=== PATIENT | female | born 1940 | race Caucasian/White ===

== ENCOUNTER 2022-01-18 23:44 | Inpatient (IN) ==
[2022-01-19 00:26] LABS: Activated Partial Thrombo Time 56.6 seconds (26.0-38.0); INR 1.39 (0.86-1.15)
[2022-01-19 00:28] LABS: ABS Eosinophils 0.1 10^3/ul (0-0.6); ABS Lymphocytes 0.9 10^3/ul (1.0-4.8); ABS Monocytes 0.7 10^3/ul (0-0.8); ABS Neutrophils 8.6 10^3/ul (1.5-7.7); Hematocrit 44 % (35-47); Hemoglobin 13.7 g/dL (12.0-16.0); Mean Corpuscular HGB Conc 31 g/dL (31-36); Mean Corpuscular Hemoglobin 27 pg (27-31); Mean Corpuscular Volume 86 fL (80-97); Mean Platelet Volume 7.9 fL (7.4-10.4); Nucleated Red Blood Cells % 0.1; Platelet Count 221 10^3/uL (150-450); Red Blood Count 5.14 10^6 /uL (3.70-4.87); Red Cell Distribution Width 18 % (10-15); White Blood Count 10.4 10^3/uL (3.5-10.8)
[2022-01-19 00:44] LABS: High Sens Troponin Baseline 28 pg/mL (<15)
[2022-01-19 00:52] LABS: Albumin 3.3 g/dL (3.2-5.2); CO2 Carbon Dioxide 25 mmol/L (22-32); Calcium 8.6 mg/dL (8.6-10.3); Chloride 103 mmol/L (101-111); Sodium 136 mmol/L (135-145)
[2022-01-19 00:54] LABS: Anion Gap 8 mmol/L (2-11)
[2022-01-19 00:57] LABS: ALT 33 U/L (7-52); Alkaline Phosphatase 237 U/L (35-149); Blood Urea Nitrogen 29 mg/dL (6-24); Creatine Kinase 45 U/L (10-223); Globulin 3.4 g/dL (2-4); Glucose 116 mg/dL (70-100); Total Protein 6.7 g/dL (6.4-8.9); eGFR CKD-EPI 88.9 (>60)
[2022-01-19] MEDS ORDERED: Atropine 0.1 MG/ML 10 ml SYR (1 mg) ONE (01:16)
[2022-01-19 01:36] LABS: High Sensitivity Troponin 1 Hr 46 pg/mL (<15)
[2022-01-19 02:08] LABS: Potassium Redraw 5.2 mmol/L (3.5-5.0)
[2022-01-19] MEDS ORDERED: Furosemide 20 mg/2 ml IV VIAL IV ONE (02:39)
[2022-01-19] MEDS ORDERED: Furosemide 40 mg/4 ml IV VIAL IV ONE (08:16)
[2022-01-19] MEDS ORDERED: Zosyn 3.375 GM IV - ED ONCE IV ONE (08:30)
[2022-01-19] MEDS ORDERED: Zosyn per Pharmacy NOTE FOLLOW UP SCH (09:00)
[2022-01-19 10:37] LABS: Albumin 3.1 g/dL (3.2-5.2); Calcium 8.4 mg/dL (8.6-10.3); Total Bilirubin 0.5 mg/dL (0.2-1.0)
[2022-01-19 10:43] LABS: Globulin 3.2 g/dL (2-4); Total Protein 6.3 g/dL (6.4-8.9); eGFR CKD-EPI 90.2 (>60)
[2022-01-19 10:52] LABS: Urine Appearance Cloudy; Urine Bilirubin Negative (Negative); Urine Blood 2+ (Negative); Urine Color Yellow; Urine Glucose Negative (Negative); Urine Ketones Negative (Negative); Urine Nitrite Negative (Negative); Urine Protein Negative (Negative); Urine Specific Gravity 1.008 (1.002-1.030); Urine Urobilinogen Negative (Negative)
[2022-01-19 11:12] LABS: Urine Bacteria 1+ (Absent); Urine Red Blood Cell 2+(6-10/hpf) (Absent); Urine White Blood Cell 2+(11-20/hpf) (Absent)
[2022-01-19 11:18] LABS: PO2 Arterial 153 mmHg (80-100)
[2022-01-19 11:24] LABS: TSH Ultra Thyroid Stim Horm 1.16 mcIU/mL (0.34-5.60)
[2022-01-19 11:33] LABS: PCO2 Arterial 89 mmHg (35-45)
[2022-01-19 11:35] LABS: Potassium 4.8 mmol/L (3.5-5.0)
[2022-01-19] MEDS ORDERED: Atropine 0.1 MG/ML 10 ml SYR (1 mg) IV PUSH PRN ×2 (12:28→19:45)
[2022-01-19] MEDS: ZOSYN 3.375 GM Q8H per EXTENDED INFUSION IV SCH ×2 (13:32→22:42)
[2022-01-19 14:19] LABS: Calcium 8.6 mg/dL (8.6-10.3); Magnesium 2.1 mg/dL (1.9-2.7); Phosphorus 6.2 mg/dL (2.5-5.0); eGFR CKD-EPI 87.9 (>60)
[2022-01-19 14:42] LABS: PO2 Arterial 218 mmHg (80-100)
[2022-01-19 14:45] LABS: PCO2 Arterial 73 mmHg (35-45)
[2022-01-20] MEDS: ZOSYN 3.375 GM Q8H per EXTENDED INFUSION IV SCH (05:38)
[2022-01-20 06:00] LABS: ABS Lymphocytes 0.8 10^3/ul (1.0-4.8); ABS Monocytes 0.4 10^3/ul (0-0.8); ABS Neutrophils 5.8 10^3/ul (1.5-7.7); Eosinophil % 0.2 %; Hematocrit 39 % (35-47); Hemoglobin 12.2 g/dL (12.0-16.0); Lymphocyte % 11.6 %; Mean Corpuscular HGB Conc 32 g/dL (31-36); Mean Corpuscular Hemoglobin 27 pg (27-31); Mean Corpuscular Volume 85 fL (80-97); Mean Platelet Volume 8.4 fL (7.4-10.4); Platelet Count 183 10^3/uL (150-450); Red Blood Count 4.57 10^6 /uL (3.70-4.87); Red Cell Distribution Width 18 % (10-15)
[2022-01-20 06:24] LABS: Calcium 8.7 mg/dL (8.6-10.3); Magnesium 1.9 mg/dL (1.9-2.7); Potassium 4.4 mmol/L (3.5-5.0); eGFR CKD-EPI 89.2 (>60)
[2022-01-20] MEDS: cefTRIAXone 1 gm/50 mL D5W 1 GM/50 ML BAG IV SCH (12:37)
[2022-01-20] MEDS ORDERED: Furosemide 40 mg/4 ml IV VIAL IV ONE (16:41)
[2022-01-20] MEDS: levETIRAcetam IV 250 MG in NS 0.9% 100 ml BAG 100 ML IVPB SCH (18:12)
[2022-01-20] MEDS: Carbidopa/Levodop 25/100 MG TAB PO SCH ×2 (18:12→20:43)
[2022-01-21] MEDS: levETIRAcetam IV 250 MG in NS 0.9% 100 ml BAG 100 ML IVPB SCH (05:36)
[2022-01-21 06:48] LABS: ABS Basophils 0.1 10^3/ul (0-0.2); ABS Monocytes 0.8 10^3/ul (0-0.8); ABS Neutrophils 5.5 10^3/ul (1.5-7.7); Eosinophil % 0.4 %; Hematocrit 41 % (35-47); Hemoglobin 12.7 g/dL (12.0-16.0); Lymphocyte % 13.9 %; Mean Corpuscular HGB Conc 31 g/dL (31-36); Mean Corpuscular Hemoglobin 27 pg (27-31); Mean Corpuscular Volume 86 fL (80-97); Mean Platelet Volume 8.5 fL (7.4-10.4); Nucleated Red Blood Cells % 0.2; Platelet Count 175 10^3/uL (150-450); Red Blood Count 4.77 10^6 /uL (3.70-4.87); Red Cell Distribution Width 18 % (10-15); White Blood Count 7.4 10^3/uL (3.5-10.8)
[2022-01-21 07:06] LABS: Albumin 3.1 g/dL (3.2-5.2); Calcium 8.6 mg/dL (8.6-10.3); Globulin 3.4 g/dL (2-4); Magnesium 1.9 mg/dL (1.9-2.7); Potassium 4.2 mmol/L (3.5-5.0); Total Protein 6.5 g/dL (6.4-8.9); eGFR CKD-EPI 95.3 (>60)
[2022-01-21 07:07] LABS: Albumin/Globulin Ratio 0.9 (1-3); Total Bilirubin 0.7 mg/dL (0.2-1.0)
[2022-01-21] MEDS: Carbidopa/Levodop 25/100 MG TAB PO SCH ×4 (09:02→20:25)
[2022-01-21] MEDS: cefTRIAXone 1 gm/50 mL D5W 1 GM/50 ML BAG IV SCH (11:52)
[2022-01-21] MEDS ORDERED: Furosemide 40 mg/4 ml IV VIAL IV SLOW PU ONE (13:47)
[2022-01-21] MEDS ORDERED: Metoprolol Tartrate 5 mg VIAL 5 ml VIAL (1 mg/ml) IV PRN (15:41)
[2022-01-21 16:47] LABS: Blood Urea Nitrogen 15 mg/dL (6-24); Calcium 8.6 mg/dL (8.6-10.3); Chloride 93 mmol/L (101-111); Glucose 122 mg/dL (70-100); Potassium 3.9 mmol/L (3.5-5.0); Sodium 141 mmol/L (135-145); eGFR CKD-EPI 96.3 (>60)
[2022-01-21 17:06] LABS: CO2 Carbon Dioxide 47 mmol/L (22-32)
[2022-01-22 07:55] LABS: ABS Basophils 0.1 10^3/ul (0-0.2); ABS Lymphocytes 0.9 10^3/ul (1.0-4.8); ABS Monocytes 0.7 10^3/ul (0-0.8); ABS Neutrophils 4.9 10^3/ul (1.5-7.7); Eosinophil % 0.3 %; Hematocrit 42 % (35-47); Hemoglobin 12.9 g/dL (12.0-16.0); Lymphocyte % 13.7 %; Mean Corpuscular HGB Conc 31 g/dL (31-36); Mean Corpuscular Hemoglobin 26 pg (27-31); Mean Corpuscular Volume 85 fL (80-97); Mean Platelet Volume 8.1 fL (7.4-10.4); Nucleated Red Blood Cells % 0.1; Platelet Count 172 10^3/uL (150-450); Red Blood Count 4.87 10^6 /uL (3.70-4.87); Red Cell Distribution Width 18 % (10-15); White Blood Count 6.6 10^3/uL (3.5-10.8)
[2022-01-22] MEDS: Carbidopa/Levodop 25/100 MG TAB PO SCH ×4 (08:01→20:49)
[2022-01-22 08:39] LABS: Calcium 8.9 mg/dL (8.6-10.3); Magnesium 1.9 mg/dL (1.9-2.7); Potassium 4.1 mmol/L (3.5-5.0); eGFR CKD-EPI 94.5 (>60)
[2022-01-22] MEDS ORDERED: Furosemide 20 mg/2 ml IV VIAL IV SLOW PU ONE (09:40)
[2022-01-22] MEDS: cefTRIAXone 1 gm/50 mL D5W 1 GM/50 ML BAG IV SCH (12:51)
[2022-01-22 14:50] LABS: PO2 Arterial 156 mmHg (80-100)
[2022-01-22 14:54] LABS: PCO2 Arterial 92 mmHg (35-45)
[2022-01-23 04:45] LABS: ABS Eosinophils 0.1 10^3/ul (0-0.6); ABS Monocytes 0.6 10^3/ul (0-0.8); ABS Neutrophils 2.9 10^3/ul (1.5-7.7); Eosinophil % 2.5 %; Hematocrit 40 % (35-47); Hemoglobin 12.5 g/dL (12.0-16.0); Lymphocyte % 21.2 %; Mean Corpuscular HGB Conc 31 g/dL (31-36); Mean Corpuscular Hemoglobin 27 pg (27-31); Mean Corpuscular Volume 85 fL (80-97); Mean Platelet Volume 8.3 fL (7.4-10.4); Nucleated Red Blood Cells % 0.1; Platelet Count 148 10^3/uL (150-450); Red Blood Count 4.68 10^6 /uL (3.70-4.87); Red Cell Distribution Width 18 % (10-15); White Blood Count 4.6 10^3/uL (3.5-10.8)
[2022-01-23 04:59] LABS: Blood Urea Nitrogen 19 mg/dL (6-24); Calcium 8.6 mg/dL (8.6-10.3); Chloride 91 mmol/L (101-111); Glucose 83 mg/dL (70-100); Potassium 4.4 mmol/L (3.5-5.0); Sodium 137 mmol/L (135-145); eGFR CKD-EPI 101.9 (>60)
[2022-01-23 05:24] LABS: CO2 Carbon Dioxide 46 mmol/L (22-32)
[2022-01-23] MEDS: Carbidopa/Levodop 25/100 MG TAB PO SCH ×4 (07:54→20:14)
[2022-01-23] MEDS ORDERED: Furosemide 20 mg/2 ml IV VIAL IV ONE (09:32)
[2022-01-23] MEDS: cefTRIAXone 1 gm/50 mL D5W 1 GM/50 ML BAG IV SCH (11:39)
[2022-01-23] MEDS ORDERED: Furosemide 20 mg/2 ml IV VIAL IV SLOW PU ONE (18:08)
[2022-01-24] MEDS: Carbidopa/Levodop 25/100 MG TAB PO SCH ×4 (08:14→21:18)
[2022-01-24] MEDS ORDERED: Enoxaparin 40 MG/0.4 ML SYR SUBCUT SCH (11:00)
[2022-01-24] MEDS: cefTRIAXone 1 gm/50 mL D5W 1 GM/50 ML BAG IV SCH (13:39)
[2022-01-25 04:56] LABS: ABS Basophils 0.1 10^3/ul (0-0.2); ABS Eosinophils 0.1 10^3/ul (0-0.6); ABS Lymphocytes 0.5 10^3/ul (1.0-4.8); ABS Monocytes 0.5 10^3/ul (0-0.8); ABS Neutrophils 4.9 10^3/ul (1.5-7.7); Eosinophil % 1.5 %; Hematocrit 42 % (35-47); Hemoglobin 12.8 g/dL (12.0-16.0); Lymphocyte % 7.9 %; Mean Corpuscular HGB Conc 30 g/dL (31-36); Mean Corpuscular Hemoglobin 26 pg (27-31); Mean Corpuscular Volume 86 fL (80-97); Platelet Count 149 10^3/uL (150-450); Red Blood Count 4.88 10^6 /uL (3.70-4.87); Red Cell Distribution Width 18 % (10-15)
[2022-01-25 05:11] LABS: Calcium 8.8 mg/dL (8.6-10.3); Magnesium 1.9 mg/dL (1.9-2.7); Potassium 4.2 mmol/L (3.5-5.0); eGFR CKD-EPI 99.4 (>60)
[2022-01-25] MEDS: Carbidopa/Levodop 25/100 MG TAB PO SCH ×5 (09:54→21:11)
[2022-01-25] MEDS ORDERED: Polyethylene Glycol 3350 17 GM PACKET PO PRN (13:51)
[2022-01-25] MEDS ORDERED: Ondansetron ODT 4 mg TAB 4 MG TAB SL PRN (13:51)
[2022-01-25] MEDS: Morphine ORAL CONCENTRATE 5 MG/0.25 ML ORAL.SYRIN SL PRN (16:38)
[2022-01-25] MEDS: Scopolamine 1 mg/72hr PATCH TRANSDERM SCH (18:46)
[2022-01-26] MEDS: Carbidopa/Levodop 25/100 MG TAB PO SCH ×4 (10:21→22:33)
[2022-01-26] MEDS: Morphine ORAL CONCENTRATE 5 MG/0.25 ML ORAL.SYRIN SL PRN (13:39)
[2022-01-27] MEDS: Morphine ORAL CONCENTRATE 5 MG/0.25 ML ORAL.SYRIN SL PRN (01:17)
[2022-01-27] MEDS: Carbidopa/Levodop 25/100 MG TAB PO SCH ×5 (08:49→22:26)
[2022-01-28] MEDS: Carbidopa/Levodop 25/100 MG TAB PO SCH ×4 (09:50→22:42)
[2022-01-28] MEDS: Scopolamine 1 mg/72hr PATCH TRANSDERM SCH (14:49)
[2022-01-28] MEDS: Morphine ORAL CONCENTRATE 5 MG/0.25 ML ORAL.SYRIN SL PRN (16:11)
[2022-01-29] MEDS: Carbidopa/Levodop 25/100 MG TAB PO SCH ×4 (10:46→21:38)
[2022-01-29] MEDS: Morphine ORAL CONCENTRATE 5 MG/0.25 ML ORAL.SYRIN SL PRN ×2 (12:18→16:13)
[2022-01-29 20:27] VITALS: BP 121/62
== END 2022-01-29 23:45 | disposition expired | DRG 291 ==
LOC: ED 23:44 → SUATTDRO 01-19 02:32 → EDHOLD 01-19 02:32 → MEDTELE 01-19 09:57 → ICU 01-19 11:56 → MED 01-19 21:35
PROVIDERS: ADMIT Hospitalist; ATTEND Internal Medicine